=== PATIENT | male | born 1995 | race Caucasian/White ===

== ENCOUNTER 2016-12-16 17:05 | Emergency (ER) | payer BC ==
[~2016-12-16] VITALS: Ht 190.5 cm; Wt 86.1 kg
[2016-12-16 17:12] VITALS: Ht 190.5 cm; Wt 86.1 kg
[2016-12-16] MEDS ORDERED: IBUPROFEN 200 MG TAB PO STA (17:51)
[2016-12-16] MEDS ORDERED: ACETAMINOPHEN 500 MG TAB PO STA (17:51)
[2016-12-16] MEDS ORDERED: SODIUM CHLORIDE 0.9% 1000ML 1,000 ML IV STA ×2 (17:51)
--- NOTE | 2016-12-16 17:51 | EMERGENCY ROOM VISIT NOTE ---
History Report prepared by Missy: Jere Santos Under the Supervision of: Dr. Yury Torres M.D. First contact with patient: 17:16 Chief Complaint: FLU LIKE SX Stated Complaint: DIZZINESS, HEADACHE, SORE THROAT History of Present Illness The patient is a 21 year old white male with a past medical history of an aortic aneurysm who presents to the ED with a cc of worsening illness beginning last night. Positive headache, sore throat, dizziness, fever. Negative cough, n/ v/d, sob, cp, rash. He says that he started with the sore throat last night, and has progressed to the other symptoms today. The patient saw Dr. Norton ([facility]) for a regular checkup, and had a temperature of 101 there. His heart checkup was normal. He then went to [facility], where he had concerning orthostatic testing, and was referred here. The patient notes that he has not been eating and drinking as much today. Pt denies any known recent sick contacts. Source of History: patient Onset: Last night Position: other (global - illness) Timing: worsening Associated Symptoms: + fevers, + headache, + sorethroat, No cough, No chest pain, No SOB, No nausea, No vomiting, No rash Note: Associated symptoms: Dizzy. Review of Systems See HPI for pertinent positives and negatives. A total of ten systems were reviewed and were otherwise negative. Past Medical & Surgical Medical Problems: (1) Aortic aneurysm Family History No pertinent family history Social History Smoking Status: Never Smoker Marital Status: single Housing Status: lives with roommate Occupation Status: [employer] student Current/Historical Medications Scheduled Losartan Potassium (Cozaar), 25 MG PO DAILY Ondasetron Odt (Zofran Odt), 4 MG SL Q6H Prednisone (Prednisone), 50 MG PO DAILY Allergies Coded Allergies: Penicillins (Verified Allergy, Intermediate, Hives, 12/16/16) Physical Exam Vital Signs Date Time Temp Pulse Resp B/P (MAP) Pulse Ox O2 Delivery O2 Flow Rate FiO2 12/16/16 19:03 99 16 116/71 98 Room Air 12/16/16 17:12 37.5 105 16 118/73 96 Room Air Physical Exam GENERAL: Awake, alert, well-appearing, NAD HENT: Normocephalic, atraumatic. Mild tonsillitis, no posterior pharyngeal swelling, no uvular deviation. Mild exudate noted to right tonsil. EYES: Normal conjunctiva. Sclera non-icteric. NECK: Supple. No nuchal rigidity. FROM. RESPIRATORY: CTAB, no rhonchi, wheezing, crackles CARDIAC: RRR, no MRG ABDOMEN: Soft, NTND, BS+ MSK: No chest wall TTP, no LE edema. Cap refill normal. NEURO: GCS 15, CN 2-12 intact, moves all 4s on command SKIN: No rash or jaundice noted. Medical Decision & Procedures ER Provider Diagnostic Interpretation: X-ray: Per my interpretation, radiologist review. TWO VIEW CHEST CLINICAL HISTORY: Cough and fever. Sore throat. FINDINGS: PA and lateral chest radiographs are obtained. No prior studies are available for comparison at the time of dictation. The cardiomediastinal silhouette is unremarkable. The lungs and pleural spaces are clear. There is no pneumothorax. The bony thorax appears intact. There is mild thoracic scoliosis. IMPRESSION: No active disease in the chest. Electronically signed by: Torsten Dias M.D. 12/16/2016 6:14 PM Dictated Date/Time: 12/16/2016 6:13 PM Laboratory Results 12/16/16 17:30 Red Blood Count 5.38, Mean Corpuscular Volume 88.8, Mean Corpuscular Hemoglobin 32.3, Mean Corpuscular Hemoglobin Concent 36.4, Mean Platelet Volume 9.5, Neutrophils (%) (Auto) 86.3, Lymphocytes (%) (Auto) 5.1, Monocytes (%) (Auto) 8.1, Eosinophils (%) (Auto) 0.1, Basophils (%) (Auto) 0.1, Neutrophils # (Auto) 13.77, Lymphocytes # (Auto) 0.81, Monocytes # (Auto) 1.29, Eosinophils # (Auto) 0.01, Basophils # (Auto) 0.02 12/16/16 17:30 Test 12/16/16 17:20 12/16/16 17:30 Influenza Type A Antigen Neg for Influ A (NEG) Influenza Type B Antigen Neg for Influ B (NEG) White Blood Count 15.94 K/uL (4.8-10.8) Red Blood Count 5.38 M/uL (4.7-6.1) Hemoglobin 17.4 g/dL (14.0-18.0) Hematocrit 47.8 % (42-52) Mean Corpuscular Volume 88.8 fL (80-100) Mean Corpuscular Hemoglobin 32.3 pg (25-34) Mean Corpuscular Hemoglobin Concent 36.4 g/dl (32-36) Platelet Count 185 K/uL (130-400) Mean Platelet Volume 9.5 fL (7.4-10.4) Neutrophils (%) (Auto) 86.3 % Lymphocytes (%) (Auto) 5.1 % Monocytes (%) (Auto) 8.1 % Eosinophils (%) (Auto) 0.1 % Basophils (%) (Auto) 0.1 % Neutrophils # (Auto) 13.77 K/uL (1.4-6.5) Lymphocytes # (Auto) 0.81 K/uL (1.2-3.4) Monocytes # (Auto) 1.29 K/uL (0.11-0.59) Eosinophils # (Auto) 0.01 K/uL (0-0.5) Basophils # (Auto) 0.02 K/uL (0-0.2) RDW Standard Deviation 40.4 fL (36.4-46.3) RDW Coefficient of Variation 12.6 % (11.5-14.5) Immature Granulocyte % (Auto) 0.3 % Immature Granulocyte # (Auto) 0.04 K/uL (0.00-0.02) Anion Gap 7.0 mmol/L (3-11) Est Creatinine Clear Calc Drug Dose 128.0 ml/min Estimated GFR () 111.4 Estimated GFR (Non- 96.1 BUN/Creatinine Ratio 13.3 (10-20) Calcium Level 9.7 mg/dl (8.5-10.1) Laboratory results reviewed by me Medications Administered Medications (Trade) Dose Ordered Sig/Divya Route Start Time Stop Time Status Last Admin Dose Admin Sodium Chloride 1,000 ml @ 999 mls/hr Q1H1M STAT IV 12/16/16 17:51 12/16/16 18:51 DC 12/16/16 18:20 999 MLS/HR Ibuprofen (Advil Tab) 400 mg NOW STAT PO 12/16/16 17:51 12/16/16 17:54 DC 12/16/16 18:19 400 MG Acetaminophen (Tylenol Tab) 1,000 mg NOW STAT PO 12/16/16 17:51 12/16/16 17:54 DC 12/16/16 18:20 1,000 MG Sodium Chloride 1,000 ml @ 999 mls/hr Q1H1M STAT IV 12/16/16 17:51 12/16/16 18:51 DC 12/16/16 18:20 999 MLS/HR ED Course 1740: The patient was evaluated in room B5. A complete history and physical exam was performed. 1918: I reevaluated the patient and he is resting. I told him that his strep was negative. The patient verbally expressed understanding and agreement of the treatment plan. The patient will be discharged. Medical Decision The patient is a 21 year old white male with a past medical history of an aortic aneurysm who presents to the ED with a cc of worsening illness beginning last night. Positive headache, sore throat, dizziness, fever. Negative cough, n/ v/d, sob, cp, rash. Differential diagnosis: URI, pharyngitis, PNA, tonsillitis, viral syndrome. Patient was seen and evaluated at the bedside. Patient did have a history of sore throat since this morning. 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 He states that he had been tested for Marfan's which is negative. Patient states that his aneurysm has been stable in size at 4 cm for the last [address] Norton. Patient denies any chest pain or shortness of breath at this time. Patient has not taking anything for pain. Patient hasn't had any cough and a sore throat. He denies any sick contacts. Patient had blood work which was remarkable for mild white count of 15,000. She had a negative chest film. Patient had a negative flu and strep. Patient received multiple fluid boluses. Patient was able to tolerate by mouth. Patient is feeling improved. Told that he will have Rx's for nausea and steroids if he needs them to help w/ diet/ tolerating PO and/or if his tonsilittis doesn't improve w/ motrin/tylenol. Patient was given strict follow-up, discharge, return precautions. Patient agreed with plan of care and patient was safely discharged home. Medication Reconcilliation Current Medication List: was personally reviewed by me Blood Pressure Screening Patient's blood pressure: Normal blood pressure Impression Primary Impression: URI (upper respiratory infection) Additional Impressions: Pharyngitis Febrile illness Scribe Attestation The scribe's documentation has been prepared under my direction and personally reviewed by me in its entirety. I confirm that the note above accurately reflects all work, treatment, procedures, and medical decision making performed by me. Departure Information Dispostion Home / Self-Care Prescriptions Ondasetron Odt (ZOFRAN ODT) 4 Mg Tab 4 MG SL Q6H for Nausea, #6 TAB Prov: Yury Torres M.D. 12/16/16 Prednisone (PREDNISONE) 50 Mg Tab 50 MG PO DAILY for 5 Days, #5 TAB Prov: Yury Torres M.D. 12/16/16 Referrals No Doctor, Assigned (PCP) Patient Instructions ED Tonsillitis, ED Upper Resp Infec No Abx Tx, [facility] Additional Instructions Please return to the emergency department if you have worsening or recurrent symptoms not amenable to at-home treatment. Please call for a follow-up appointment with her primary care physician. Please take your medications as prescribed. If you have other concerns and/or complaints please feel free to also call your primary care physician's office or return the ED for further evaluation, management, and treatment. You may take 600 mg Ibuprofen every 6 hours as needed for pain with food for no more than 2 consecutive days. You may take tylenol 1000mg every 6 hours as needed for pain. You may take motrin and tylenol separately or at the same time. You may consider zofran to help w/ tolerating food/fluids. Avoid alcohol or caffeinated beverages. You may take a short course of steroids if your throat pain does not improve after 24-48 hrs of taking motrin/tylenol as described above. If you do, please take with food and take w/ a Zantac daily as it can cause some upset stomach. You have been examined and treated today on an emergency basis only. This is not a substitute for, or an effort to provide, complete comprehensive medical care. It is impossible to recognize and treat all injuries or illnesses in a single emergency department visit. It is therefore important that you follow up closely with [facility]. Call as soon as possible for an appointment. Thank you for your time and consideration. I look forward to speaking with you again soon. Please don't hesitate to call us if you have any questions. School Instructions Return To School: 2 days Specific Date: 12/18/16 Problem Qualifiers Primary Impression: URI (upper respiratory infection) URI type: acute pharyngitis Pharyngitis/tonsillitis etiology: unspecified etiology Qualified Codes: J02.9 - Acute pharyngitis, unspecified Additional Impressions: Pharyngitis Pharyngitis/tonsillitis etiology: unspecified etiology Qualified Codes: J02.9 - Acute pharyngitis, unspecified
[2016-12-16] MEDS ORDERED: LOSA25TA18 PO (17:57)
[2016-12-16 18:03] LABS: BASO % 0.1 %; BASO ABS # 0.02 K/uL (0-0.2); COMPLETE YES; EOS % 0.1 %; HEMATOCRIT 47.8 % (42-52); IG% 0.3 %; LYMPH % 5.1 %; LYMPH ABS # 0.81 K/uL (1.2-3.4); MEAN CELL VOLUME 88.8 fL (80-100); MEAN CORPUSCULAR HEMOGLOBIN 32.3 pg (25-34); MEAN CORPUSCULAR HGB CONC 36.4 g/dl (32-36); MEAN PLATELET VOLUME 9.5 fL (7.4-10.4); MONO % 8.1 %; NEUT % 86.3 %; PLATELET COUNT 185 K/uL (130-400); RED BLOOD COUNT 5.38 M/uL (4.7-6.1); WHITE BLOOD COUNT 15.94 K/uL (4.8-10.8)
[2016-12-16 18:09] LABS: BUN/CREATININE RATIO 13.3 (10-20); CALCIUM 9.7 mg/dl (8.5-10.1); CREATININE 1.1 mg/dl (0.60-1.40); POTASSIUM 3.7 mmol/L (3.5-5.1)
--- NOTE | 2016-12-16 18:16 | DIAGNOSTIC IMAGING REPORT ---
TWO VIEW CHEST CLINICAL HISTORY: Cough and fever. Sore throat. FINDINGS: PA and lateral chest radiographs are obtained. No prior studies are available for comparison at the time of dictation. The cardiomediastinal silhouette is unremarkable. The lungs and pleural spaces are clear. There is no pneumothorax. The bony thorax appears intact. There is mild thoracic scoliosis. IMPRESSION: No active disease in the chest. Electronically signed by: Torsten Dias M.D. 12/16/2016 6:14 PM Dictated Date/Time: 12/16/2016 6:13 PM
[2016-12-16] MEDS ORDERED: PRED50TA PO (20:02)
[2016-12-16] MEDS ORDERED: ONDA4TAB10 SL (20:02)
[2016-12-16 20:25] VITALS: BP 115/50; PULSE 77; TEMP 36.8; O2SAT 97
== END 2016-12-16 20:27 | disposition home or self-care (01) ==
LOC: C.EDB 17:08
DX: J02.9 Acute pharyngitis, unspecified (principal); R69 Illness, unspecified; I71.9 Aortic aneurysm of unspecified site, without rupture